=== PATIENT | male | born 1960 | race Asian ===

== ENCOUNTER 2017-12-21 06:24 | Day surgery (SDC) | payer BC, SELFPAY ==
--- NOTE | 2017-12-17 17:19 | Pre-Procedure Note/Attestation ---
Pre-Procedure Note/Attestation Complete Prior to Procedure Planned Procedure: left Procedure Narrative: 1. CATARACT EXTRACTION WITH PHACO AND PC IOL IMPLANTATION, LEFT EYE. 2. LIMBAL RELAXING INCISION, LEFT EYE 3.MALYUGIN RING INSERTION, LEFT EYE FOR FLOPPY IRIS SYNDROME. 4.COMPLEX CATARACT , LEFT EYE Indications for Procedure Pre-Operative Diagnosis: 1. CATARACT , LEFT EYE. 2. ASTIGMATISM, LEFT EYE. 3. FLOPPY IRIS SYNDROME, LEFT EYE 4. COMPLEX CATARACT , LEFT EYE. Attestation I attest that I discussed the nature of the procedure; its benefits; risks and complications; and alternatives (and the risks and benefits of such alternatives ), prior to the procedure, with the patient (or the patient's legal telephone sales representative). I attest that, if there was a reasonable possibility of needing a blood transfusion, the patient (or the patient's legal telephone sales representative) was given the [facility] standardized written summary, pursuant to the Satish [place] Blood Safety Act ([place] Health and Safety Code # 1645, as amended). I attest that I re-evaluated the patient just prior to the surgery and that there has been no change in the patient's H&P, except as documented below: Jeffrey Mayes MD Dec 17, 2017 17:19
[~2017-12-21] VITALS: Ht 170.2 cm; Wt 68.0 kg
[2017-12-21] VITALS (7 sets, daily range): BP systolic 120–132; BP diastolic 74–88
[~2017-12-21 06:24] MED LIST: CIALIS5 MG PO; TAMSULOSIN HCL0.4 MG ORAL; acetaZOLAMIDE 125mg tab ORAL ONE
[2017-12-21] MEDS ORDERED: Midazolam 2mg/2ml Inj ONE (06:57)
[2017-12-21] MEDS ORDERED: Carbachol 0.01% Op Soln 1.5ml vial ONE (07:00)
[2017-12-21] MEDS ORDERED: EPINEPHrine 1mg/1ml Amp ONE (07:00)
[2017-12-21] MEDS ORDERED: Lidocaine 1% MPF 10mg/ml 5ml ONE (07:00)
[2017-12-21] MEDS ORDERED: BSS 500ml btl ONE (07:01)
[2017-12-21] MEDS ORDERED: BSS 15ml BTL ONE ×2 (07:01→07:24)
[2017-12-21] MEDS ORDERED: Povidone-Iodine 5% opth solution ONE (07:01)
[2017-12-21] MEDS ORDERED: Dexamethasone 4mg/ml vial ONE (07:01)
[2017-12-21] MEDS ORDERED: Sodium Hyaluronate 10 mg/ml 0.85ml ONE ×2 (07:01→11:17)
[2017-12-21] MEDS: Tropicamide 1% Opth 15ml Soln LEFT EYE SCH ×3 (07:14→07:36)
[2017-12-21] MEDS: Vigamox Opth Soln 3ml LEFT EYE SCH ×3 (07:14→07:36)
[2017-12-21] MEDS: Akten 3.5% 1ml Btl LEFT EYE SCH ×3 (07:15→07:36)
[2017-12-21] MEDS: Phenylephrine 10% Opth Soln 5ml LEFT EYE SCH ×3 (07:15→07:36)
[2017-12-21] MEDS: Diclofenac Sod 0.1% Op Soln LEFT EYE SCH ×3 (07:15→07:36)
[2017-12-21] MEDS ORDERED: Lidocaine 2% 20mg/ml/Epi 0.005mg/ml 20ml vial ONE (07:24)
[2017-12-21] MEDS ORDERED: Maxitrol Opth Oint 3.5gm ONE (07:24)
[2017-12-21 08:00] LABS: BASOPHILS % (AUTO) 0.5 % (0.0-2.0); HEMATOCRIT 47.3 % (42.0-52.0); HEMOGLOBIN 16.1 G/DL (14.2-18.0); LYMPHOCYTES % (AUTO) 24.9 % (20.0-45.0); MEAN CORPUSCULAR VOLUME 88 FL (80-99); MONOCYTES % (AUTO) 7.2 % (1.0-10.0); NEUTROPHILS % (AUTO) 64.4 % (45.0-75.0); PLATELET COUNT 209 K/UL (150-450); RED BLOOD COUNT 5.38 M/UL (4.70-6.10); RED CELL DISTRIBUTION WIDTH 11.1 % (11.6-14.8); WHITE BLOOD COUNT 5.8 K/UL (4.8-10.8)
[2017-12-21 08:14] LABS: ANION GAP 10 mmol/L (5-15); BLOOD UREA NITROGEN 12 mg/dL (7-18); CALCIUM 8.3 MG/DL (8.5-10.1); CARBON DIOXIDE 26 MMOL/L (21-32); CHLORIDE 104 MMOL/L (98-107); CREATININE 0.9 MG/DL (0.55-1.30); POTASSIUM 3.4 MMOL/L (3.5-5.1); SODIUM 140 MMOL/L (136-145)
[2017-12-21] MEDS ORDERED: Propofol 200mg/20ml IV ONE (08:30)
[2017-12-21] MEDS ORDERED: LR 1000ml ONE (08:30)
[2017-12-21] MEDS ORDERED: fentaNYL 100 mcg/2 mL IV ONE (08:30)
[2017-12-21] MEDS ORDERED: LR 1000ml 1,000 ML IVLG SCH (08:58)
--- NOTE | 2017-12-21 08:58 | Anethesia Preoperative Eval ---
Anesthesia Pre-op PMH/ROS General Date of Evaluation: Dec 21, 2017 Time of Evaluation: 08:25 Anesthesiologist: Mayra ASA Score: ASA 2 Mallampati Score Class I : Soft palate, uvula, fauces, pillars visible Class II: Soft palate, uvula, fauces visible Class III: Soft palate, base of uvula visible Class IV: Only hard plate visible Mallampati Classification: Class II Surgeon: Sugey Diagnosis: L eye cataract Surgical Procedure: L eye cataract extraction Anesthesia History: none Family History: no anesthesia problems Allergies: Coded Allergies: No Known Allergies (Unverified , 12/21/17) Medications: see eMAR Past Medical History Cardiovascular: Reports: HTN - borderline; Denies: CAD, AR, valve dz, arrhythmia, other Pulmonary: Denies: asthma, COPD, GAVIN, other Gastrointestinal/Genitourinary: Reports: GERD - mild, other - bph; Denies: CRI, ESRD Neurologic/Psychiatric: Denies: dementia, CVA, depression/anxiety, TIA, other Endocrine: Denies: DM, hypothyroidism, steroids, other HEENT: Reports: cataract (L), cataract (R); Denies: glaucoma, AKIACHAK (L), AKIACHAK (R), other Hematology/Immune: Denies: anemia, DVT, bleeding disorder, other Musculoskeletal/Integumentary: Denies: OA, RA, DJD, DDD, edema, other PMH Narrative: as above PSxH Narrative: see H&P Anesthesia Pre-op Phys. Exam Physician Exam Last Vital Signs Date Time Temp Pulse Resp B/P (MAP) Pulse Ox O2 Delivery O2 Flow Rate FiO2 12/21/17 07:34 Room Air 12/21/17 07:18 98.7 70 18 129/88 (102) 96 98.7 Constitutional: NAD Neurologic: CN 2-12 intact Cardiovascular: RRR, no M/R/G Respiratory: CTA Gastrointestinal: S/NT/ND Airway Exam Mallampati Score: Class II MO: limited Neck: flexible ROM: limited Teeth: missing Dentures: no upper, no lower Anesthesia Pre-op A/P Labs Hematology Test 12/21/17 07:36 White Blood Count 5.8 K/UL (4.8-10.8) Red Blood Count 5.38 M/UL (4.70-6.10) Hemoglobin 16.1 G/DL (14.2-18.0) Hematocrit 47.3 % (42.0-52.0) Mean Corpuscular Volume 88 FL (80-99) Mean Corpuscular Hemoglobin 29.9 PG (27.0-31.0) Mean Corpuscular Hemoglobin Concent 34.0 G/DL (32.0-36.0) Red Cell Distribution Width 11.1 % (11.6-14.8) L Platelet Count 209 K/UL (150-450) Mean Platelet Volume 6.8 FL (6.5-10.1) Neutrophils (%) (Auto) 64.4 % (45.0-75.0) Lymphocytes (%) (Auto) 24.9 % (20.0-45.0) Monocytes (%) (Auto) 7.2 % (1.0-10.0) Eosinophils (%) (Auto) 3.0 % (0.0-3.0) Basophils (%) (Auto) 0.5 % (0.0-2.0) Chemistry Test 12/21/17 07:36 Sodium Level 140 MMOL/L (136-145) Potassium Level 3.4 MMOL/L (3.5-5.1) L Chloride Level 104 MMOL/L (98-107) Carbon Dioxide Level 26 MMOL/L (21-32) Anion Gap 10 mmol/L (5-15) Blood Urea Nitrogen 12 mg/dL (7-18) Creatinine 0.9 MG/DL (0.55-1.30) Estimat Glomerular Filtration Rate > 60 mL/min (>60) Glucose Level 88 MG/DL (74-106) Calcium Level 8.3 MG/DL (8.5-10.1) L Studies Pre-op Studies: EKG - NSR Risk Assessment & Plan Assessment: ASA2 Plan: MAC Status Change Before Surgery: No Pre-Antibiotics Drug: none Davidson Nunez MD Dec 21, 2017 08:58
[2017-12-21] MEDS ORDERED: fentaNYL 100 mcg/2 mL IV PRN (09:00)
[2017-12-21] MEDS ORDERED: DiphenhydrAMINE 50mg/ml Inj IVP PRN (09:00)
--- NOTE | 2017-12-21 09:43 | Discharge Summary ---
Discharge Summary Discharge Summary Discharge Summary DATE OF ADMISSION: 12/21/2017 DATE OF DISCHARGE: 12/21 2017 REASON FOR HOSPITALIZATION: 1- cataract left eye 2- Astigmatism, left eye SURGERY PERFORMED: 1- Cataract extraction with phaco and PC IOl implantation , left eye 2- Limbal Relaxing Inciaion ( LRI ). CONDITION IN THE HOSPITAL:The patient tolerated the surgery without complications. DISCHARGE CONDITION: The patient was stable at discharge. DISCHARGE MEDICATIONS: 1. Vigamox eye drops one drop q.i.d, OS 2. Prednisolone one drop q.i.d, OS 3. Prolensa 1 drop qd, OS POSTOPERATIVE ORDERS: The patient has to rest at home. No bending, No lifting, No watching Television tonight. POSTOPERATIVE FOLLOW UP: The patient will be followed in my office tomorrow morning at 7 o'clock. Jeffrey Mayes MD Dec 21, 2017 09:43
[2017-12-21] MEDS ORDERED: acetaZOLAMIDE 125mg tab ONE (09:45)
--- NOTE | 2017-12-21 09:45 | Immediate Post-Op Evaluation ---
Immediate Post-Op Evalulation Immediate Post-Op Evalulation Procedure: L eye cataract extraction with IOL Date of Evaluation: Dec 21, 2017 Time of Evaluation: 09:44 IV Fluids: 300 Blood Products: none Estimated Blood Loss: none Urinary Output: none` Blood Pressure Systolic: 124 Blood Pressure Diastolic: 83 Pulse Rate: 66 Respiratory Rate: 20 O2 Sat by Pulse Oximetry: 99 Temperature (Fahrenheit): 97.8 Pain Score (1-10): 1 Nausea: No Vomiting: No Complications none Patient Status: awake, patent, none Hydration Status: adequate Davidson Nunez MD Dec 21, 2017 09:45
--- NOTE | 2017-12-21 09:47 | Brief Operative Note ---
Immediate Post Operative Note Operative Note Chief Complaint: Blurry vision, difficulty driving and reading, left eye Pre-op Diagnosis: 1. CATARACT , LEFT EYE. 2. ASTIGMATISM, LEFT EYE. 3. FLOPPY IRIS SYNDROME, LEFT EYE 4. COMPLEX CATARACT , LEFT EYE. Procedure: 1- Cataract extraction with phaco and PC IOL implantation, left eye 2- Limbal relaxing incision ( LRI ), left eye 3- Malyugin ring insertion for floppy iris syndrome, left eye 4- Complex cataract extraction, left eye Post-op Diagnosis: same as pre-op Surgeon: Jeffrey Mayes MD Security Site Supervisor: None Additional Surgeons: None Anesthesiologist: Dr. Nunez Anesthesia: MAC Specimen: none Complications: none Condition: stable Fluids: 500ml Estimated Blood Loss: none Drains: none Implant(s) used?: Yes - Multifocal PC IOl implanted in the left eye without complication Jeffrey Mayes MD Dec 21, 2017 09:47
--- NOTE | 2017-12-21 10:27 | 48 Hour Post Anesthesia Eval ---
Post Anesthesia Evaluation Procedure: L eye cataract extraction with IOL Date of Evaluation: Dec 21, 2017 Time of Evaluation: 10:26 Blood Pressure Systolic: 128 0: 64 Pulse Rate: 68 Respiratory Rate: 20 Temperature (Fahrenheit): 97.5 O2 Sat by Pulse Oximetry: 99 Airway: patent Nausea: No Vomiting: No Pain Intensity: 1 Hydration Status: adequate Cardiopulmonary Status: stable Mental Status/LOC: patient returned to baseline Follow-up Care/Observations: n/a Post-Anesthesia Complications: none Follow-up care needed: ready to discharge Davidson Nunez MD Dec 21, 2017 10:27
--- NOTE | 2017-12-22 00:30 | Operative Note - Dictated ---
DATE OF OPERATION: 12/21/2017 FACILITY: [facility]. SURGEON: Jeffrey Mayes M.D. PLATE FORMER: None. ANESTHESIOLOGIST: Davidson Nunez M.D. ANESTHESIA: Monitored anesthesia care (MAC). POSTOPERATIVE DIAGNOSES: 1. Cataract in the left eye. 2. Floppy iris syndrome. 3. Complete cataract. 4. Astigmatism. SURGERY PERFORMED: 1. Cataract extraction with phacoemulsification and posterior chamber intraocular lens implantation in the left eye. 2. Limbal relaxing incision (LRI) in the left eye. 3. Malyugin ring insertion for treatment of floppy iris syndrome. 4. Complete cataract removed. INDICATION FOR SURGERY: The patient is a 57-year-old gentleman with history of hypertension. He is taking Diovan. He has had appendectomy, hernia surgery, and cataract surgery in the right eye two months ago. He is happy with the result. Now, he is complaining of blurred vision in the left eye. On examination of the left eye, the cornea is clear, anterior chamber is clean and quiet, but is shallow. Pupillary reflex is normal. There is no RAPD. There is 4+ nuclear sclerosis and 2+ cortical cataract. Funduscopy shows normal optic disc, normal macula, and periphery retina is flat. To improve his vision in the left eye, the cataract has to be removed and posterior chamber intraocular lens has to be implanted and astigmatism has to be addressed as well. INFORMED CONSENT: The nature of the surgery, risks, benefits, alternatives, and potential complications were explained in detail to the patient. The potential complications including, but not limited to bleeding, infection, posterior capsular rupture, lens subluxation, flat anterior chamber, iris prolapse, uveitis, corneal edema, macular edema, endophthalmitis, retinal detachment, loss of vision, and even loss of the eye were all explained in detail to the patient. The patient voiced understanding and accepted all the complications. The alternatives including accommodating lenses, multifocal lens, toric lens, and conventional cataract surgery with limbal relaxing incision for treatment of astigmatism were all explained in detail to the patient. The patient voiced understanding. The patient elected to have cataract surgery with insertion of multifocal IOL and limbal relaxing incision for treatment of astigmatism. Then, he signed the consent form, which is in the chart. DESCRIPTION OF SURGERY AND FINDINGS: Following that, the patient was taken to the operation room in a stable condition. Lidocaine gel Akten 3.5% were applied to the conjunctiva of the left eye. IV sedation was given by the anesthesiologist, Dr. Nunez. After adequate anesthesia and sedation had been achieved, the left eye was prepped and draped in the sterile fashion for intraocular surgery. Following that, a speculum was placed in the left eye. Before the patient was taken to the operation room, the cornea was marked at 180 and 90 meridian. In the operation room, using a corneal marker and marking pen, the steep meridian of the cornea was marked. Following that, using a sushma knife with 600 micron blade, two parallel incisions were placed on the steep meridian of the cornea to treat the astigmatism. Following that, using a Super Sharp knife, a clear corneal side port was created. Following that, 1% lidocaine without preservative (MPF) was injected into the anterior chamber. Viscoelastic agent, Healon was injected into the anterior chamber. Following that, a clear corneal temporal keratotomy was performed with a 2.8 mm keratome. Following that, viscoelastic agent, Healon was injected into the anterior chamber again. A Malyugin ring 7 mm was inserted into the anterior chamber. The coils of the Malyugin ring were engaged with the sphincter of the pupil and a sushma shaped space was created for safe phacoemulsification. Following that, Blue was injected under the viscoelastic agent to stain the anterior capsule of the crystalline lens. Following that, a clear fresh viscoelastic agent was injected into the anterior chamber again. Under the viscoelastic agent, an anterior capsulotomy was performed in the fashion of capsulorrhexis beautifully. Following that, all the viscoelastic agent was removed from the anterior chamber. Following that, using balanced salt solution, hydrodissection and hydrodelineation was performed and the nucleus was freed. Following that, using a phacoemulsification machine in the fashion of horizontal chop, the nucleus was removed in toto. Following that, using irrigation aspiration unit, cortical material was removed from the capsular bag and the capsular bag was polished. Following that, the capsular bag was filled with viscoelastic agent, Healon. Following that, a +22 diopters BLB00 foldable PCIOL with serial number [id number] was inserted into the capsular bag. Using a Sinskey hook, the lens was manipulated and put in the proper position. Following that, the viscoelastic agent was removed from the anterior and posterior part of the lens and the anterior chamber was filled with balanced salt solution. Following that, the wound was hydrated with balanced salt solution. The wound was checked for leakage and there was no leakage. Following that, Vigamox eye drops were applied to the conjunctiva of the left eye. The patient tolerated the surgery without complications. At the end of the surgery, the eye was patched with a clear sterile fenestrated shield. Following that, the patient was transferred to the recovery room. In the recovery room, 125 mg of Diamox was given by mouth stat. Postoperative orders and directions were given to the patient. The patient will be discharged home upon stabilization. The patient will be followed in my office tomorrow morning at 10 o'clock. Jeffrey Mayes M.D. DR: MARLEE JOB#: [id number] CC:
--- NOTE | 2017-12-23 17:32 | Pre-op HX & Phy Repo 2 SIG ---
DATE OF ADMISSION: 12/21/2017 REASON FOR EVALUATION: I was asked by Dr. Jeffrey Mayes to see this 57-year-old, male who is going for elective surgery on the left eye. The patient has a cataract left eye. Please see History and Physical by physics technician, Dr. Jeffrey Mayes. The patient was evaluated in outpatient procedure department, part of the evaluation by patient's brother at bedside. PAST MEDICAL HISTORY: Denies history of chest pain, palpitation, or heart attack. No history of diabetes. Denies history of hypertension. No history of GI bleeding. No stroke or seizures. Denies history of renal insufficiency. No thyroid problem. No anemia. The patient has history of benign prostatic hypertrophy. PAST SURGICAL HISTORY: Appendectomy and inguinal hernia. FAMILY HISTORY: Mother has colon cancer and father prostate cancer, both are alive. ALLERGIES: Not known. PRESENT MEDICATIONS: Cialis 5 mg daily. SOCIAL HISTORY: Denied tobacco use or alcohol use. No street drugs. PHYSICAL EXAMINATION: GENERAL: Alert, well-developed, well-nourished male in his 50s. VITAL SIGNS: Blood pressure 129/88, temperature 98.7 degrees, pulse 70, respiration 18, and O2 saturation 96% on room air. SKIN: Warm, clear. No rashes. No diaphoresis. No open wound. Lymph nodes not enlarged. HEENT: Head, normocephalic. Ears, clear. No discharge. Eye, extraocular muscles intact. Cataract left eye. Full description per Dr. Jeffrey Mayes. Mouth, clear and moist. No dentures. NECK: Supple. No jugular venous distention. Carotids artery +2. Trachea midline. CHEST: No deformity or asymmetry. LUNGS: Clear to percussion. No rales or rhonchi. No wheezing. HEART: Sinus rhythm. No ectopy. No murmur. No S3 or S4. ABDOMEN: Soft, benign. Liver and spleen not enlarged. EXTREMITIES: No peripheral edema. No varicose vein. No calf tenderness. GENITOURINARY TRACT: Normal for gender. Benign prostatic hypertrophy. Nocturia x3. NEUROLOGIC: No tremor. No nystagmus. LABORATORY AND DIAGNOSTIC DATA: ECG normal sinus rhythm, 75 per minute. Marked sinus arrhythmia, last p.o. intake yesterday. Lab work pending. IMPRESSION: 1. Cataract, left eye. 2. Benign prostatic hypertrophy. PLAN: Cataract extraction, left eye with intraocular lens implant per Dr. Jeffrey Mayes. CONCLUSION: The patient's vital signs stable. EKG normal. The patient did not eat or drink from last night. The patient's condition optimized for surgery. Thank you very much, Dr. Mayes, for privilege to participate in presurgical care of this interesting patient. Srinivas Sidhu M.D. DR: MARY JOB#: [id number] CC:
== END 2017-12-21 11:00 | disposition home or self-care (01) ==
LOC: SUR 06:24
DX: H25.812 Combined forms of age-related cataract, left eye (principal); H52.202 Unspecified astigmatism, left eye; H21.81 Floppy iris syndrome; I10 Essential (primary) hypertension; K21.9 Gastro-esophageal reflux disease without esophagitis; N40.0 Benign prostatic hyperplasia without lower urinary tract symptoms; Z90.49 Acquired absence of other specified parts of digestive tract
CPT/HCPCS: 36415; 66982; 66999; 80048; 85025; J0171; J1100; J2250; J2704; J3010; J7120; V2632; 94003; 94150